=== PATIENT | female | born 1950 | race Caucasian/White ===

== ENCOUNTER → 2020-10-30 11:05 | Outpatient (CLI) | payer MEDICARE, OTHER, SELFPAY ==
--- NOTE | ~2020-10-30 | DEXA_ITS ---
Bone Density Report Name: Missy Lawson Age: 69 Sex: Female Ethnicity: White Date of : 1950 Indication: postmenopausal; screening for osteoporosis; cancer; seizure disorder; hysterectomy; Referring Provider: Jaqui Hayes Study: Bone densitometry was performed. Exam Date: October 30, 2020 Accession number: [id number] Bone Density: Region BMD T-score Z-score Classification AP Spine (L1-L4) 0.989 -0.5 1.6 Normal Femoral Neck (Left) 0.868 0.2 2.0 Normal Total Hip (Left) 1.084 1.2 2.7 Normal Femoral Neck (Right) 0.849 0.0 1.8 Normal Total Hip (Right) 1.053 0.9 2.4 Normal Total Hip Mean 1.069 1.1 2.6 Normal World Health Organization criteria for BMD impression classify patients as: Normal (T-score at or above -1.0), Osteopenia (T-score between -1.0 and -2.5), or Osteoporosis (T-score at or below -2.5). 10-year Fracture Risk: FRAX not reported because: All T-scores for Spine Total, Hip Total, Femoral Neck at or above -1.0 Previous Exams: Region Exam Age BMD T-score BMD Change BMD Change Date g/cm2 vs Baseline vs Previous AP Spine(L1-L4) 10/30/2020 69 0.989 -0.5 -0.188* -0.036* 09/03/2018 67 1.025 -0.2 -0.152* 0.006 08/16/2016 65 1.019 -0.3 -0.158* -0.018 03/08/2014 63 1.037 -0.1 -0.140* -0.058* 09/12/2011 60 1.095 0.4 -0.082* -0.075* 09/11/2009 58 1.171 1.1 -0.006 -0.006 12/01/2006 55 1.177 1.2 Total Hip(Left) 10/30/2020 69 1.084 1.2 -0.127* -0.014 09/03/2018 67 1.099 1.3 -0.113* -0.006 08/16/2016 65 1.104 1.3 -0.107* -0.003 03/08/2014 63 1.107 1.4 -0.105* -0.044* 09/12/2011 60 1.151 1.7 -0.061* -0.039* 09/11/2009 58 1.190 2.0 -0.022 -0.022 12/01/2006 55 1.212 2.2 Total Hip(Right) 10/30/2020 69 1.053 0.9 -0.131* -0.008 09/03/2018 67 1.060 1.0 -0.123* 0.009 08/16/2016 65 1.051 0.9 -0.132* -0.046* 03/08/2014 63 1.097 1.3 -0.087* -0.083* 09/12/2011 60 1.180 1.9 -0.004 0.014 09/11/2009 58 1.166 1.8 -0.018 -0.018 12/01/2006 55 1.183 2.0 *Denotes significance at 95% confidence level, LSC for AP Spine = 0.022 g/cm2, LSC for Total Hip = 0.027 g/cm2 Clinical Information Provided by Patient:
== END ==
DX: C50.811 Malignant neoplasm of overlapping sites of right female breast (principal); Z78.0 Asymptomatic menopausal state; C50.812 Malignant neoplasm of overlapping sites of left female breast; Z17.0 Estrogen receptor positive status [ER+]; Z51.81 Encounter for therapeutic drug level monitoring; Z79.811 Long term (current) use of aromatase inhibitors
CPT/HCPCS: 77080

== ENCOUNTER → 2022-11-01 10:01 | Outpatient (CLI) | payer MEDICARE, SELFPAY ==
--- NOTE | ~2022-11-01 | DEXA_ITS ---
Bone Density Report Name: ANDREA ANDREWS Age: 71 Sex: Female Ethnicity: White Date of : 1950 Indication: postmenopausal; screening for osteoporosis; cancer; seizure disorder; hysterectomy; Referring Provider: Jaqui Lr Study: Bone densitometry was performed. Exam Date: November 01, 2022 Accession number: [id number] Bone Density: Region BMD T-score Z-score Classification AP Spine (L1-L4) 0.960 -0.8 1.4 Normal Femoral Neck (Left) 0.873 0.2 2.1 Normal Total Hip (Left) 1.088 1.2 2.8 Normal Femoral Neck (Right) 0.869 0.2 2.1 Normal Total Hip (Right) 1.052 0.9 2.5 Normal Total Hip Mean 1.070 1.1 2.7 Normal World Health Organization criteria for BMD impression classify patients as: Normal (T-score at or above -1.0), Osteopenia (T-score between -1.0 and -2.5), or Osteoporosis (T-score at or below -2.5). 10-year Fracture Risk: FRAX not reported because: All T-scores for Spine Total, Hip Total, Femoral Neck at or above -1.0 Previous Exams: Region Exam Age BMD T-score BMD Change BMD Change Date g/cm2 vs Baseline vs Previous AP Spine(L1-L4) 11/01/2022 71 0.960 -0.8 -0.217* -0.028* 10/30/2020 69 0.989 -0.5 -0.188* -0.036* 09/03/2018 67 1.025 -0.2 -0.152* 0.006 08/16/2016 65 1.019 -0.3 -0.158* -0.018 03/08/2014 63 1.037 -0.1 -0.140* -0.058* 09/12/2011 60 1.095 0.4 -0.082* -0.075* 09/11/2009 58 1.171 1.1 -0.006 -0.006 12/01/2006 55 1.177 1.2 Total Hip(Left) 11/01/2022 71 1.088 1.2 -0.124* 0.003 10/30/2020 69 1.084 1.2 -0.127* -0.014 09/03/2018 67 1.099 1.3 -0.113* -0.006 08/16/2016 65 1.104 1.3 -0.107* -0.003 03/08/2014 63 1.107 1.4 -0.105* -0.044* 09/12/2011 60 1.151 1.7 -0.061* -0.039* 09/11/2009 58 1.190 2.0 -0.022 -0.022 12/01/2006 55 1.212 2.2 Total Hip(Right) 11/01/2022 71 1.052 0.9 -0.132* -0.001 10/30/2020 69 1.053 0.9 -0.131* -0.008 09/03/2018 67 1.060 1.0 -0.123* 0.009 08/16/2016 65 1.051 0.9 -0.132* -0.046* 03/08/2014 63 1.097 1.3 -0.087* -0.083* 09/12/2011 60 1.180 1.9 -0.004 0.014 09/11/2009 58 1.166 1.8 -0.018 -0.018 12/01/2006 55 1.183 2.0 *Denotes significan
== END ==
PROVIDERS: PCP Family Medicine Sports Medicine
DX: C50.811 Malignant neoplasm of overlapping sites of right female breast (principal); Z78.0 Asymptomatic menopausal state; C50.812 Malignant neoplasm of overlapping sites of left female breast; Z17.0 Estrogen receptor positive status [ER+]; Z85.3 Personal history of malignant neoplasm of breast
CPT/HCPCS: 77080

== ENCOUNTER 2023-05-21 00:37 | Day surgery (SDC) | payer MEDICARE, SELFPAY ==
[2023-05-08 12:53] VITALS: BMI 29.7
--- NOTE | 2023-05-20 16:29 | PM.HPGS ---
History of Present Illness History of Present Illness Consent: Risks, benefits, and alternatives have been discussed and questions answered. Patient agrees to proceed with procedure. Chief complaint: neoplasm screening Narrative: Missy Lawson is a 72 year old female referred for colon cancer screening. Her last colonoscopy was 10 years ago Review of Systems Review of Systems: All systems reviewed & are unremarkable except as noted in HPI and below PMFSH Surgical History Surgical History H/O hysterectomy for benign disease (~05/2010) H/O mastectomy (~03/2015) Family History Family History Mother Family history of malignant neoplasm of breast in first degree relative Father Family history of heart disease in male family member before age 55 Other Asthma Family history of lupus erythematosus Social History Social History Social History: never smoker Smoking status: Never smoker Alcohol intake: current Alcohol use details: rarely Substance use: never Substance use type: does not use Lack of Transportation: No Lack of Food: Never True Current Housing: I Have Housing Concerned About Future Housing: No Difficulty Paying Gas/Electric Bills: No Difficulty Paying for Meds: No Currently Unemployed: No Education: Bachelor's Degree Difficulty w/ Childcare or Family Care: No Living arrangements: with family Gender identity (if verbalized by the patient): Female Spiritual care concerns: No Meds Home Medications and Allergies Home Medications Medication Instructions Recorded Confirmed Type lamotrigine 25 mg tablet See Rx Instructions .Route 01/28/23 05/08/23 Rx .COMPLEX #120 tabs anastrozole 1 mg tablet 1 mg PO DAILY 05/08/23 05/08/23 History ergocalciferol (vitamin D2) 1,250 50,000 unit PO WEEKLY 05/08/23 05/08/23 History mcg (50,000 unit) capsule rosuvastatin 10 mg tablet (Crestor) 10 mg PO DAILY 05/08/23 05/08/23 History Allergies Allergy/AdvReac Type Severity Reaction Status Date / Time No Known Drug Allergies Allergy Unknown Unknown Verified 05/21/23 09:51 Exam Const: General: alert Orientation/consciousness: patient oriented x3 Resp: Auscultation: clear to auscultation bilaterally Cardio: Rhythm: regular rhythm GI: GI Palp: Yes Soft to palpation and No Tenderness to palpation present (GI) Neuro: General: patient oriented x3 Assessment and Plan Assessment and plan (1) Colon cancer screening: Code(s): Z12.11 - Encounter for screening for malignant neoplasm of colon Status: Acute Assessment and Plan: Colonoscopy with possible biopsy or polypectomy or cautery or injection of substances.
[2023-05-21 09:51] VITALS: BP 144/76; PULSE 86; RESP 20; TEMP 36.2; O2SAT 98; BMI 29.2
[2023-05-21] MEDS: LACTATED RINGERS 1,000 ML 150 ML IV CONT (10:04)
--- NOTE | 2023-05-21 10:27 | P.PNAN_ITS ---
Anes - Initial Pre Proc Eval Procedure: Operation Date: 05/21/23 11:00 Proposed Procedures p Screening Colonoscopy - Abraham Hinojosa MD Date/Time: 05/21/23 10:27 Surgeon: Abraham Hinojosa MD Pre Op Diagnosis: neoplasm screening Patient Data Age: 72 Gender: F Height: 1.65 m Weight: 79.8 kg Last Vital Signs Temp 97.2 F L 05/21/23 09:51 Pulse 86 05/21/23 09:51 Resp 20 05/21/23 09:51 BP 144/76 H 05/21/23 09:51 Pulse Ox 98 05/21/23 09:51 O2 Del Method Room Air 05/21/23 09:51 Allergies Allergy/AdvReac Type Severity Reaction Status Date / Time No Known Drug Allergies Allergy Unknown Unknown Verified 05/21/23 09:51 Home Medications Medication Instructions Recorded Confirmed Type lamotrigine 25 mg tablet See Rx Instructions .Route 01/28/23 05/08/23 Rx .COMPLEX #120 tabs anastrozole 1 mg tablet 1 mg PO DAILY 05/08/23 05/08/23 History ergocalciferol (vitamin D2) 1,250 50,000 unit PO WEEKLY 05/08/23 05/08/23 History mcg (50,000 unit) capsule rosuvastatin 10 mg tablet (Crestor) 10 mg PO DAILY 05/08/23 05/08/23 History Patient hx anesthesia problems: none Family hx anesthesia problems: none Results Review: All pre-operative results and documents have been reviewed as part of the pre- operative evaluation. [facility] Surgical History Surgical History H/O hysterectomy for benign disease (~05/2010) H/O mastectomy (~03/2015) Family History Family History Mother Family history of malignant neoplasm of breast in first degree relative Father Family history of heart disease in male family member before age 55 Other Asthma Family history of lupus erythematosus Social History Social History Social History: never smoker Smoking status: Never smoker Alcohol intake: current Alcohol use details: rarely Substance use: never Substance use type: does not use Lack of Transportation: No Lack of Food: Never True Current Housing: I Have Housing Concerned About Future Housing: No Difficulty Paying Gas/Electric Bills: No Difficulty Paying for Meds: No Currently Unemployed: No Education: Bachelor's Degree Difficulty w/ Childcare or Family Care: No Living arrangements: with family Gender identity (if verbalized by the patient): Female Spiritual care concerns: No Anes - Eval Final PreProcedure Day of Procedure 05/21/23 10:27 Patient weight: normal Heart: regular rate and rhythm Lungs: clear to auscultation Airway: Mallampati scale class II Neurological: alert and oriented Last oral intake: >/= 8 hours ASA classification: III Emergent: no Anesthetic plan: proceed Anesthesia type and monitoring: general GIVS and standard monitoring Results Review: All pre-operative results and documents have been reviewed as part of the pre-operative evaluation. Informed Consent: The patient's anesthetic plan and its attendant risks and benefits were discussed with the patient/family/POA. Questions were solicited and answers provided to the satisfaction of the patient/family/POA.
[2023-05-21 10:56] VITALS: BP 99/50; PULSE 69; RESP 16; O2SAT 98
[2023-05-21 11:06] VITALS: BP 113/60; PULSE 74; RESP 20; O2SAT 100
[2023-05-21 11:16] VITALS: BP 118/92; PULSE 68; RESP 16; O2SAT 100
== END 2023-05-21 11:30 | disposition home or self-care (01) ==
PROVIDERS: PCP Family Medicine Sports Medicine; Visit Provider Internal Medicine Gastroenterology
PROC: 0DJD8ZZ Inspection of Lower Intestinal Tract, Via Natural or Artificial Opening Endoscopic (ICD-10-PCS; CPT 45378; principal; 2023-05-21 11:00)
DX: Z12.11 Encounter for screening for malignant neoplasm of colon (principal); K57.30 Diverticulosis of large intestine without perforation or abscess without bleeding; Z79.811 Long term (current) use of aromatase inhibitors
CPT/HCPCS: G0121; J2704; J7120

== ENCOUNTER 2024-02-28 07:42 | Outpatient (CLI) | payer MEDICARE, SELFPAY ==
--- NOTE | ~2024-02-28 | MR_ITS ---
EXAMINATION: MR brain/brain stem wo con DATE: 02/28/2024 08:33 INDICATION: Seizure. TECHNIQUE: Magnetic resonance imaging (MRI) of the brain and brainstem was performed without intraven ous contrast. COMPARISON: None. FINDINGS: There are a few foci of nonspecific increased T2-weighted signal intensity in the cerebral white matter, which is within normal limits for the patient's age. The hippocampi are normal and symm etric. There is no intracranial hemorrhage, acute infarction, or abnormal intracranial mass lesion. T he ventricles are normal in size. The orbits are normal. The paranasal sinuses are clear. The mastoid air cells are normal. IMPRESSION: 1. Normal brain. Reviewed, dictated and finalized at location A. IMPRESSION: 1. Normal brain.
== END 2024-02-28 07:43 ==
LOC: MICIMG 07:44
PROVIDERS: PCP Family Medicine Sports Medicine; Visit Provider Student in an Organized Health Care Education/Training Program
DX: G40.909 Epilepsy, unspecified, not intractable, without status epilepticus (principal)
CPT/HCPCS: 70551

== ENCOUNTER 2024-12-17 12:43 | Outpatient (CLI) | payer MEDICARE, SELFPAY ==
--- NOTE | ~2024-12-17 | DEXA_ITS ---
Bone Density Report Name: ANDREA ANDREWS Age: 74 Sex: Female Ethnicity: White Date of : 1950 Indication: postmenopausal; screening for osteoporosis; height loss; cancer; seizure disorder; hysterectomy; Referring Provider: UNKNOWN, UNKNOWN Study: Bone densitometry was performed. Exam Date: December 17, 2024 Accession number: [id number] Bone Density: Region BMD T-score Z-score Classification AP Spine(L1-L4) 0.898 -1.4 1.0 Osteopenia Femoral Neck (Left) 0.878 0.3 2.3 Normal Total Hip (Left) 1.038 0.8 2.5 Normal Femoral Neck (Right) 0.820 -0.3 1.8 Normal Total Hip (Right) 1.038 0.8 2.5 Normal Total Hip Mean 1.038 0.8 2.5 Normal World Health Organization criteria for BMD impression classify patients as: Normal (T-score at or above -1.0), Osteopenia (T-score between -1.0 and -2.5), or Osteoporosis (T-score at or below -2.5). 10-year Fracture Risk(1): Major Osteoporotic Fracture 4.3% Hip Fracture 0.4% Reported Risk Factors: [place] (), Neck BMD=0.820, BMI=32.2 (1) FRAX(R) Version 3.08. Fracture probability calculated for an untreated patient. Fracture probability may be lower if the patient has received treatment. Previous Exams: -- Region Exam Age BMD T-score BMD Change BMD Change Date g/cm2 vs Baseline vs Previous -- AP Spine (L1-L4) 12/17/2024 74 0.898 -1.4 -23.7%* -6.5%* 11/01/2022 71 0.960 -0.8 -18.4%* -2.9%* 10/30/2020 69 0.989 -0.5 -16.0%* -3.5%* 09/03/2018 67 1.025 -0.2 -12.9%* 0.6% 08/16/2016 65 1.019 -0.3 -13.5%* -1.8% 03/08/2014 63 1.037 -0.1 -11.9%* -5.3%* 09/12/2011 60 1.095 0.4 -6.9%* -6.4%* 09/11/2009 58 1.171 1.1 -0.5% -0.5% 12/01/2006 55 1.177 1.2 Total Hip(Left) 12/17/2024 74 1.038 0.8 -14.4%* -4.6%* 11/01/2022 71 1.088 1.2 -10.2%* 0.3% 10/30/2020 69 1.084 1.2 -10.5%* -1.3% 09/03/2018 67 1.099 1.3 -9.3%* -0.5% 08/16/2016 65 1.104 1.3 -8.9%* -0.2% 03/08/2014 63 1.107 1.4 -8.6%* -3.8%* 09/12/2011 60 1.151 1.7 -5.0%* -3.3%* 09/11/2009 58 1.190 2.0 -1.8% -1.8% 12/01/2006 55 1.212 2.2 Total Hip(Right) 12/17/2024 74 1.038 0.8 -12.3%* -1.3% 11/01/2022 71 1.052 0.9 -11.2%* -0.1% 10/30/2020 69 1.053 0.9 -11.0%* -0.7% 09/03/2018 67 1.060 1.0 -10.4%* 0.9% 08/16/2016 65 1.051 0.9 -11.2%* -4.2%* 03/08/2014 63 1.097 1.3 -7.3%* -7.0%* 09/12/2011 60 1.180 1.9 -0.3% 1.2% 09/11/2009 58 1.166 1.8 -1.5% -1.5% 12/01/2006 55 1.183 2.0 -- *Denotes significance at 95% confidence level, LSC for AP Spine = 0.022 g/cm2, LSC for Total Hip = 0.027 g/cm2 Clinical Information Provided by Patient: Has used the following medications: Vitamin D, Calcium, ANASTROZOLE Has the following medical conditions: Any Seizure Disorders, Cancer, Hysterectomy, BREAST CA 2014 Patient maximum height was 65 Menopause Age: 59 Drinks caffeinated beverages Onset of menses at age 14 Number of children 2 Impression: The patient has low bone mass, based on the Total Spine T-score. The patient has an estimated ten-year risk of hip fracture of 0.4% and an estimated ten-year risk of major fracture of 4.3%, based on the WHO FRAX algorithm. The BMD for the AP Spine (L1-L4) decreased, changing by -6.5% since the last DXA exam. The BMD for the Total Hip(Left) decreased, changing by -4.6% since the last DXA exam. Discussion: BONE DENSITY IS LOW AT ONE OR MORE SKELETAL SITES. This patient's lowest T-score is low at one or more skeletal sites. It meets the World Health Organization's (WHO) criteria for ?low bone mass? (T-score between -1.0 and -2.5). The patient's 10-year risk of fracture as calculated by FRAX is less than the threshold where pharmacological therapy is recommended by the National Osteoporosis Foundation (NOF). However, all treatment decisions require clinical judgment and consideration of individual patient factors, including patient preferences, comorbidities, previous drug use, risk factors not captured in the FRAX model (e.g., frailty, falls, vitamin D deficiency, increased bone turnover, interval significant decline in bone density) and possible under or overestimation of fracture risk by FRAX. The patient should follow a healthful lifestyle (good nutrition with adequate calcium and vitamin D, and appropriate weight-bearing exercise). Follow-Up: Consider repeating this study in 2 years to reassess this patient's status, or sooner if there is some new clinical indication. Reported by: JEMAL on 12/17/2024 1:17:00 PM. Reviewed, dictated and finalized at location A.
== END 2024-12-17 12:44 | disposition home or self-care (01) ==
LOC: MICIMG 12:46
DX: M85.88 Other specified disorders of bone density and structure, other site (principal); E55.9 Vitamin D deficiency, unspecified; Z91.89 Other specified personal risk factors, not elsewhere classified; Z51.81 Encounter for therapeutic drug level monitoring; Z79.811 Long term (current) use of aromatase inhibitors; Z85.3 Personal history of malignant neoplasm of breast
CPT/HCPCS: 77080